=== PATIENT | male | born 1950 | race Caucasian/White ===

== ENCOUNTER → 2018-08-26 | Day surgery (SDC) | payer MEDICARE ==
[2018-08-24 10:47] LABS: BASOPHILS % 0.7 % (0.0-1.0); EOSINOPHILS # (AUTO) 0.2 (0.0-0.4); EOSINOPHILS % 2.7 % (0.0-6.0); HEMATOCRIT 42.2 % (38.2-49.6); HEMOGLOBIN 14.8 g/dL (14.0-18.0); LYMPHOCYTES # (AUTO) 1.3 (1.0-3.2); LYMPHOCYTES % 21.5 % (18.0-39.1); MEAN CORPUSCULAR HEMOGLOBIN 31.8 pg (28-32); MEAN CORPUSCULAR HGB CONC 35.1 g/dL (31-35); MEAN CORPUSCULAR VOLUME 90.6 fL (81-99); MONOCYTES # (AUTO) 0.4 (0.2-0.8); MONOCYTES % 7.5 % (4.4-11.3); NEUTROPHILS % 66.9 % (38.7-80.0); PLATELET COUNT 227 x10e3/uL (140-360); RED BLOOD COUNT 4.66 x10e6/uL (4.3-5.7)
[~2018-08-26] MED LIST: ATORVASTATIN CA40 MG PO; DOXAZOSIN MESYLA4 MG PO; FENOFIBRATE145 MG PO; FENTANYL CITRATE/PF 100MCG/2 ML INJ ONE; GLUCAGON FOR INJ 1 MG VIAL ONE; HYOSCYAMINE SULFATE 0.5 MG/ML INJ ONE; LOSARTAN-HCTZ1 EACH PO; MELOXICAM15 MG PO; MELOXICAM7.5 MG PO; METFORMIN HCL500 MG PO; METOCLOPRAMIDE HCL 10 MG/2ML VIAL ONE; MIDAZOLAM HCL 2 MG/2 ML VIAL ONE; NAPROXEN250 MG PO; PANTOPRAZOLE 40 MG 10ML VIAL ONE; PROPOFOL IV EMULSION 10 MG/ML 50 ML VIAL ONE; ULTRAM 50MG50 MG PO
--- OUTSIDE RECORDS SUMMARY | 2018-08-26 07:21 | XMS REPORT | Continuity of Care Document ---
Author Author [facility] Interface Address Unknown Phone Unavailable Problems Problem Status Onset Date Classification Date Reported Comments Source Aftercare following joint replacement surgery 10/02/2017 01/02/2018 [facility] LT SHOULDER (AQUA) Active 07/01/2017 [facility] LT SHLDR REPAIR Active 05/04/2017 [facility] S/P LT SHOULDER REPAIR Active 05/04/2017 [facility] Stiffness of left shoulder, not elsewhere classified 01/02/2018 [facility] Pain in left shoulder 01/02/2018 [facility] Weakness 01/02/2018 [facility] Other reduced mobility 01/02/2018 [facility] AFTERCARE FOLLOWING JOINT REPLACEMENT TAYLOR Active [facility] STIFFNESS OF LEFT SHOULDER, NOT ELSEWHER Active [facility] PAIN IN LEFT SHOULDER Active [facility] WEAKNESS Active [facility] OTHER REDUCED MOBILITY Active [facility] Medications Medication Details Route Status Patient Instructions Ordering Provider Order Date Source Allergies, Adverse Reactions, Alerts Substance Category Reaction Severity Reaction type Status Date Reported Comments Source Immunizations Immunization Date Given Site Status Last Updated Comments Source Results Order Name Results Value Reference Range Date Interpretation Comments Source Vital Signs Vital Sign Value Date Comments Source Encounters Location Location Details Encounter Type Encounter Number Reason For Visit Attending Provider ADM Date DC Date Status Source [facility] OP Therapy Patients [id number] Terrence Elkousy 07/13/2017 08/12/2017 [facility] OP Therapy Patients [id number] Terrence Elkousy 07/27/2017 08/26/2017 [facility] OP Therapy Patients [id number] Terrence Elkousy 08/28/2017 09/27/2017 [facility] Procedures Procedure Code Date Perfomer Comments Source
--- OUTSIDE RECORDS SUMMARY | 2018-08-26 07:21 | XMS REPORT | Summary of Care ---
Author Author [facility] Address Unknown Phone Unavailable Encounter [facility] Johnntr_nagi(FIN) [id number] Date(s): 07/27/17 - 08/25/17 [facility] Encounter Diagnosis Aftercare following joint replacement surgery (Final) - 08/28/17 Stiffness of left shoulder, not elsewhere classified (Final) - Pain in left shoulder (Final) - Weakness (Final) - Other reduced mobility (Final) - Discharge Disposition: Home or Self Care Attending Physician: Terrence Braun MD Vital Signs No data available for this section Problem List No data available for this section Allergies, Adverse Reactions, Alerts No data available for this section Medications No data available for this section Results No data available for this section Immunizations No data available for this section Procedures No data available for this section Social History No data available for this section Assessment and Plan No data available for this section
--- OUTSIDE RECORDS SUMMARY | 2018-08-26 07:21 | XMS REPORT | Summary of Care ---
Author Author [facility] Address Unknown Phone Unavailable Encounter HQ Encntr_alicorine(FIN) [id number] Date(s): 07/13/17 - 08/11/17 [facility] Discharge Disposition: Home or Self Care Attending [...]
--- OUTSIDE RECORDS SUMMARY | 2018-08-26 07:21 | XMS REPORT | Summary of Care ---
Author Author [facility] Address Unknown Phone Unavailable Encounter HQ Kareem(JERRY) [id number] Date(s): 08/28/17 - 09/26/17 [facility] Encounter Diagnosis Stiffness of left shoulder, not elsewhere classified (Final) - Pain in left shoulder (Final) - Weakness (Final) - Other reduced mobility (Final) - Aftercare following joint replacement surgery (Final) - 10/02/17 Stiffness of left shoulder, not elsewhere classified [...]
[2018-08-26 11:40] VITALS: BP 155/94
[2018-08-26 13:37] LABS: WBC,FECAL (FECAL LACTOFERRIN) NEGATIVE (NEGATIVE)
[2018-08-26 13:38] LABS: C DIFFICILE TOXIN A&B AMP PROB NEGATIVE (NEGATIVE)
--- NOTE | 2018-08-26 13:54 | Operative Report ---
DATE OF PROCEDURE: August 26, 2018 REFERRING PHYSICIAN: Dr. Saul Bazan PROCEDURES PERFORMED 1. Esophagogastroduodenoscopy with biopsies. 2. Colonoscopy with polypectomy and biopsies. INDICATIONS FOR EGD: Dyspepsia. INDICATIONS FOR COLONOSCOPY: Surveillance colonoscopy, personal history of colon polyps and history of diarrhea. MEDICATION: Patient was done under MAC. Please see anesthesiologist's note. PROCEDURE: With the patient in the left lateral decubitus position, the flexible fiberoptic Olympus gastroscope was introduced into the esophagus under direct visualization without any difficulty. The GE junction was noted at 37 cm from the incisors. Patient appeared to have a 7-cm segment of Asencio's epithelium with the squamocolumnar junction at approximately 30 cm from the incisors. Biopsies were obtained every 2 cm in 4 quadrants. There was also a minute nodule noted at the GE junction that was biopsied. The scope was then advanced with ease into the stomach traversing a small hiatal hernia. Mucosa overlying the antrum and the body revealed some diffuse erythema, low-grade to moderate edema, and biopsies were obtained and sent to stain for H. pylori. Pylorus appeared to be of normal contour and shape. It was intubated with ease. The scope was advanced all the way to the 2nd portion of the duodenum. Biopsies were obtained from the proximal 2nd portion to rule out sprue. There are some hyperplastic appearing polyps in the duodenal bulb and some were partially excised with the cold biopsy forceps. The scope was then withdrawn back into the stomach and retroflexed. The fundus as well as the cardia appeared to be within normal limits. The scope was then straightened out. It was subsequently withdrawn. Patient tolerated the procedure well. IMPRESSION 1. Asencio's esophagus, 7-cm segment, 4-quadrant biopsies every 2 cm were obtained. 2. Minute nodule, gastroesophageal junction, biopsied. 3. Small hiatal hernia. 4. Gastritis, biopsied. Biopsies sent to stain for Helicobacter pylori. 5. Duodenal polyps, hyperplastic appearing. Some were partially excised with the cold biopsy forceps. 6. Rule out sprue. PLAN: Follow up histology. Initiate Protonix 40 mg 1 p.o. q.a.m. a.c. Patient was then turned around. After adequate lubrication of the anal canal, a flexible fiberoptic Olympus colonoscope was inserted into the rectum with ease and advanced all the way to the proximal ascending colon. The cecum could be visualized, not optimally, but the scope could not be advanced to the cecum due to excessive looping in the left colon. The ileocecal valve appeared generous, possibly lipomatous and biopsies were obtained. Diverticular disease was noted to be pretty much to be scattered throughout. The rest of the ascending other than for diverticulosis appeared to be within normal limits. One polyp was hot biopsied from the transverse colon. There was some mild patchy inflammatory changes noted in the left colon. Random biopsies were obtained. Three polyps were hot biopsied from the sigmoid colon. The scope was then retroflexed into the distal rectum and moderate size internal hemorrhoids were noted, none of which was actively bleeding. The scope was then straightened out. It was subsequently withdrawn after securing an adequate stool specimen that was sent for the appropriate stool studies. Patient tolerated the procedure well. IMPRESSION 1. Cecum visualized but not entered with the scope due to excessive looping proximally. 2. Diverticulosis. 3. Transverse colon polyp, times 1, hot biopsied. 4. Mild patchy left-sided colitis. 5. Sigmoid colon polyps times 3, hot biopsied. 6. Internal hemorrhoids, none actively bleeding. PLAN: Follow up histology. Follow up stool studies. Initiate VSL #3 one p.o. daily. Patient will need an air contrast barium enema later this year for optimal visualization of the cecum. A followup colonoscopy in 3 years. Job#: [id number] RI cc:SAUL BAZAN M.D.
== END | disposition home or self-care (01) ==
LOC: OR 07:18
PROVIDERS: ATTEND Internal Medicine Gastroenterology
DX: K29.70 Gastritis, unspecified, without bleeding (principal); D17.5 Benign lipomatous neoplasm of intra-abdominal organs; K31.7 Polyp of stomach and duodenum; K63.5 Polyp of colon; K51.50 Left sided colitis without complications; K29.80 Duodenitis without bleeding; K22.70 Barrett's esophagus without dysplasia; K63.89 Other specified diseases of intestine; Q40.2 Other specified congenital malformations of stomach; K31.89 Other diseases of stomach and duodenum; K44.9 Diaphragmatic hernia without obstruction or gangrene; K57.30 Diverticulosis of large intestine without perforation or abscess without bleeding; K64.8 Other hemorrhoids; I10 Essential (primary) hypertension; E78.5 Hyperlipidemia, unspecified; E11.9 Type 2 diabetes mellitus without complications; R06.83 Snoring; H91.90 Unspecified hearing loss, unspecified ear; Z01.812 Encounter for preprocedural laboratory examination; Z01.810 Encounter for preprocedural cardiovascular examination; Z79.84 Long term (current) use of oral hypoglycemic drugs; Z96.612 Presence of left artificial shoulder joint; Z96.653 Presence of artificial knee joint, bilateral; Z87.891 Personal history of nicotine dependence
CPT/HCPCS: 36415 ×2; 43239; 45380; 45384; 82948; 83630; 83993; 84152; 85025; 87045; 87177; 87328; 87493; 88305; 88312; 93005; J1610; J1980; J2250; J2765; 45378